=== PATIENT | female | born 1950 | race Caucasian/White ===

== ENCOUNTER 2017-10-01 17:37 | Inpatient (IN) | payer MEDICARE ==
[~2017-10-01] VITALS: Ht 162.6 cm; Wt 49.0 kg
[~2017-10-01 17:37] MED LIST: AUGMENTIN500TAB PO; BENADRYL25 MG PO; CETIRIZ/PSE1 TAB PO; FUROSEMIDE20 MG PO; KLOR-CON20 MEQ PO; LASIX 10 MG10 MG/TA1 PO; MOTRIN800 MG OR; SPIRONOLACT25 MG PO; SPIRONOLACTONE25 MG PO; ULTRAM50 M1 PO; ZITHROMAX250 MG PO
--- NOTE | 2017-10-01 17:47 | NUR ---
PT TO ROOM WITH A STEADY GAIT.
[2017-10-01 18:31] LABS: HEMATOCRIT 38.1 % (37.0-47.0); IMMATURE GRANULOCYTES 0.6 % (0.0-1.0); MEAN CORPUSCULAR HGB CONC 34.1 g/L CALC (32.0-36.0); NEUT# 18.27 thou/uL (2.00-7.15); RED BLOOD COUNT 4.34 mill/uL (4.20-5.60); RED CELL DISTRI WIDTH 13.6 % (11.5-15.5)
[2017-10-01 18:32] LABS: MEAN CELL VOLUME 87.8 fL CALC (80.0-100.0)
[2017-10-01 18:39] LABS: ALBUMIN 3.5 g/dL (3.2-5.0); BILIRUBIN, TOTAL 1.1 mg/dL (0.0-1.4); CREATININE 1.1 mg/dL (0.5-1.0); POTASSIUM 3.4 mmol/l (3.5-5.1); TOTAL PROTEIN 6.4 g/dL (6.3-8.2)
[2017-10-01 19:12] LABS: URINE BILIRUBIN - DIPSTICK NEGATIVE (NEGATIVE); URINE BLOOD DIPSTICK TRACE-INTACT (NEGATIVE); URINE COLOR YELLOW; URINE GLUCOSE - DIPSTICK NEGATIVE (NEGATIVE); URINE KETONE TRACE mg/dL (NEGATIVE); URINE NITRITE - DIPSTICK NEGATIVE (Negative); URINE PROTEIN - DIPSTICK 30 mg/dL (NEG-TRACE); URINE SPECIFIC GRAVITY 1.015; URINE UROBILINOGEN - DIPSTICK 0.2 E.U./dL (0.2)
[2017-10-01 19:13] LABS: URINE CLARITY CLEAR; URINE LEUK ESTERASE SMALL (NEGATIVE); URINE RBC 0-2 RBC/hpf (0-5)
[2017-10-01 19:14] LABS: URINE SQUAMOUS EPITHELIAL CELL FEW EPI/hpf (0-FEW)
[2017-10-01 19:54] LABS: INFLUENZA A NONE DETECTED (NONE DETECT); INFLUENZA B NONE DETECTED (NONE DETECT)
--- NOTE | 2017-10-01 20:09 | NUR ---
PT HAS BEEN UPDATED ON KNOWN RESULTS. SHE HAS BEEN DRINKING THE ORAL CONTRAST IN PREPARATION FOR CT ABD. IV ABX PROVIDED ORDERED.
--- NOTE | 2017-10-01 20:33 | NUR ---
PATIENT AMBULATORY TO BATHROOM WITHOUT ASSIST.
[2017-10-01] MEDS ORDERED: FLONASE AL50 MCG/ACT IN (21:32)
[2017-10-01] MEDS ORDERED: LOSARTAN/HCT1 TA1 PO (21:33)
--- NOTE | 2017-10-01 22:12 | NUR ---
REPORT PROVIDED TO BRENNAN WILKINS, TO FLOOR SOON.
--- NOTE | 2017-10-01 22:43 | NUR ---
PT ARRIVED TO UNIT AT 2236 VIA STRETCHER WITH ER STAFF. AMBULATED TO BED WITH UNSTEADY GAIT. ALERT AND ORIENTED. DENIES PAIN UPON ARRIVA. RESPIRATIONS EVEN AND UNLABORED ON ROOM AIR. TEMPERATURE 99.4. OREINTED TO ROOM AND CALL LIGHT SYSTEM. PLAN OF CARE DISCUSSED. PT ENCOURAGED TO VERBALIZE CONCERNS. STATES UNDERSTANDING. SAFETY MEASURES IN PLACE. CALL LIGHT WITHIN REACH.
[2017-10-01 22:55] VITALS: BP 133/84
--- NOTE | 2017-10-01 23:00 | NUR ---
PT STATES THAT SHE WENT TO A WALK IN CLINIC ABOUT 3 WEEKS AGO WITH EAR ACHE AND OTHER VAGUE SYMPTOMS. THEY GAVE HER A 5 DAY DOSE OF ABT WHICH SHE COMPLETED AND EAR DROPS. SYMPTOMS DID NOT RESOLVE.
[2017-10-02 00:10] VITALS: BP 149/81
--- NOTE | 2017-10-02 00:23 | NUR ---
PT RESTING IN BED WITH EYES CLOSED; AWAKENS SPONTANEOUSLY. TEMPERATURE DOWN TO 97.8 AFTER ARRIVAL TO UNIT. PT IS POOR HISTORIAN AND ANSWERED SEVERAL QUESTIONS WITH "MAYBE" AND "IM NOT SURE." CONTINUES TO DENY PAIN. RESPIRATIONS EVEN AND UNLABORED ON ROOM AIR. IV FLUIDS INFUSING WITHOUT DIFFICULTY; IV SITE APPEARS HEALTHY. WAS UP TO VOID PALE YELLOW URINE. PT HAS NO REQUESTS OR CONCERNS AT THIS TIME. SAFETY MEASURES IN PLACE. CALL LIGHT WITHIN REACH.
[2017-10-02 04:20] VITALS: BP 166/91
--- NOTE | 2017-10-02 04:44 | NUR ---
PT ASLEEP AT THIS TIME WITH NO SIGNS OF DISTRESS. RESPIRATIONS EVEN AND UNLABORED. IV FLUIDS COMPLETED AND IV SITE SALINE LOCKED. NO ACUTE CHANGES IN CONDITION THROUGHOUT THE NIGHT. SAFETY MEASURES IN PLACE. CALL LIGHT WITHIN REACH.
[2017-10-02 07:38] LABS: HEMATOCRIT 35.3 % (37.0-47.0); HEMOGLOBIN 11.8 g/dl (12.0-16.0); IMMATURE GRANULOCYTES 0.6 % (0.0-1.0); MEAN CELL VOLUME 89.1 fL CALC (80.0-100.0); MEAN CORPUSCULAR HGB 29.8 pG CALC (26.0-32.0); MEAN CORPUSCULAR HGB CONC 33.4 g/L CALC (32.0-36.0); NEUT# 13.86 thou/uL (2.00-7.15); RED BLOOD COUNT 3.96 mill/uL (4.20-5.60); RED CELL DISTRI WIDTH 13.5 % (11.5-15.5)
[2017-10-02 08:00] LABS: ALBUMIN 2.8 g/dL (3.2-5.0); ALKALINE PHOSPHATASE 119 u/l (38-126); ANION GAP 17 (6-22 (CALC)); BILIRUBIN, TOTAL 0.8 mg/dL (0.0-1.4); BUN 14 mg/dL (8-23); BUN/CREATININE RATIO 14 (12-20 (CALC)); CARBON DIOXIDE 26 mmol/l (22-30); CHLORIDE 99 mmol/l (95-108); GFR 55 ML/MIN (>=60 (CALC)); GFR FOR AFR.AMER. > 60 ML/MIN (>=60 (CALC)); POTASSIUM 3.7 mmol/l (3.5-5.1); SGOT/AST 18 u/l (9-36); SGPT/ALT 30 u/l (11-66); SODIUM 138 mmol/l (137-146); TOTAL PROTEIN 5.5 g/dL (6.3-8.2)
[2017-10-02 08:50] VITALS: BP 165/61
--- NOTE | 2017-10-02 08:50 | NUR ---
PT IS RELAXING IN BED WITH NO DISTRESS NOTED. IV SITE IS FREE FROM REDNESS OR EDEMA, HR IS REG, PULSES ARE STRONG X4, ABD IS SOFT WITH ACTIVE BS TELE MONITOR IN PLACE.
[2017-10-02 10:33] LABS: CHOLESTEROL HDL RATIO 3.8 (<4.4 (CALC))
--- NOTE | 2017-10-02 12:30 | NUR ---
PT HAS BEEN RELAXING IN THE BED, NO DISTRESS NOTED. IV SITE IS FREE FROM REDNESS OR EDEMA.
[2017-10-02 16:00] VITALS: BP 150/63; BP 150/74
--- NOTE | 2017-10-02 16:30 | NUR ---
PT HAS BEEN RELAXING IN BED WITH NO DISTRESS NOTED IV SITE IS FREE FROM REDNESS OR EDEMA.
[2017-10-02 19:35] VITALS: BP 147/87
--- NOTE | 2017-10-02 20:00 | NUR ---
BEDSIDE REPORT RECEIVED FROM HEIDI SHULTZ. PT SITTING UP IN BED READING; ALERT AND ORIENTED. DENIES PAIN. RESPIRATIONS EVEN AND UNLABORED ON ROOM AIR. AFEBRILE AT THIS TIME. PLAN OF CARE REVIEWED. PT ENCOURAGED TO VERBALIZE CONCERNS. STATES UNDERSTANDING. SAFETY MEASURES IN PLACE. CALL LIGHT WITHIN REACH.
--- NOTE | 2017-10-02 23:55 | NUR ---
PT SITTING UP IN BED READING. CONTINUES TO DENY PAIN. RESPIRATIONS EVEN AND UNLABORED. PT STATES THAT PRODUCTIVE COUGH HAS IMPROVED SINCE YESTERDAY; BLOWING NOSE; CLEAR THIN. IV FLUIDS INFUSING WITHOUT DIFFICULTY; IV SITE APPEARS HEALTHY. NO REQUESTS OR CONCERNS AT THIS TIME. SAFETY MEASURES IN PLACE. CALL LIGHT WITHIN REACH.
--- NOTE | 2017-10-03 04:03 | NUR ---
PT ASLEEP AT THIS TIME WITH NO SIGNS OF DISTRESS. RESPIRATIONS EVEN AND UNLABORED ON ROOM AIR. NO ACUTE CHANGES IN CONDITION THROUGHOUT THE NIGHT. INDEPENDENT IN ROOM. SAFETY MEASURES IN PLACE. CALL LIGHT WITHIN REACH.
[2017-10-03 04:15] VITALS: BP 150/80
[2017-10-03 05:29] LABS: HEMATOCRIT 37.4 % (37.0-47.0); HEMOGLOBIN 12.4 g/dl (12.0-16.0); IMMATURE GRANULOCYTES 0.8 % (0.0-1.0); MEAN CELL VOLUME 89.3 fL CALC (80.0-100.0); MEAN CORPUSCULAR HGB 29.6 pG CALC (26.0-32.0); MEAN CORPUSCULAR HGB CONC 33.2 g/L CALC (32.0-36.0); NEUT# 10.31 thou/uL (2.00-7.15); RED BLOOD COUNT 4.19 mill/uL (4.20-5.60); RED CELL DISTRI WIDTH 13.3 % (11.5-15.5)
[2017-10-03 05:52] LABS: ANION GAP 18 (6-22 (CALC)); BUN 18 mg/dL (8-23); BUN/CREATININE RATIO 19 (12-20 (CALC)); CARBON DIOXIDE 21 mmol/l (22-30); CHLORIDE 102 mmol/l (95-108); GFR 55 ML/MIN (>=60 (CALC)); GFR FOR AFR.AMER. > 60 ML/MIN (>=60 (CALC)); MAGNESIUM 1.2 mg/dL (1.6-2.3); SODIUM 137 mmol/l (137-146)
[2017-10-03 08:15] VITALS: BP 172/80
--- NOTE | 2017-10-03 08:15 | NUR ---
RECEIVED PT IN BED WITH NO DISTRESS NOTED IV SITE IS FREE FROM REDNESS OR EDEMA. HR IS REG,PULSES ARE STRONG X4, ABD IS SOFT WITH ACTIVE BS. TELE MONITOR IN PLACE.
[2017-10-03 11:11] VITALS: BP 160/84
--- NOTE | 2017-10-03 12:00 | NUR ---
PT IS RELAXING IN BED WITH NO DISTRESS NOTED. IV SITE IS FREE FROM REDNESS OR EDEMA.
[2017-10-03 15:35] VITALS: BP 172/86
--- NOTE | 2017-10-03 16:07 | NUR ---
PT IS RELAXING IN THE BED WITH NO DISTRESS NOTED. IV SITE IS FREE FROM REDNESS OR EDEMA.
--- NOTE | 2017-10-03 19:18 | NUR ---
UPON ENTERING ROOM, PT IS EXITING RESTROOM. DENIES ANY NEED FOR ASSISTANCE, STATES THAT SHE WAS OPENING [employer] P[employer] AND DID SOMETHING TO HER TEETH OR SOMETHING COVERING HER TEETH THAT SHE JUST HAD APPLIED PRIOR TO COMING TO HOSPITAL, NO VISIBLE DAMAGE AT THIS TIME. PT.DENIES ANY OTHER NEEDS AT THIS TIME. CALL LIGHT W/IN REACH AND PT.ENCOURAGED TO CALL IF ANY NEEDS ARISE.
[2017-10-03 20:00] VITALS: BP 169/82
--- NOTE | 2017-10-03 22:08 | NUR ---
PT.MEDICATED ORDERS PROVIDE, ASSESSMENT COMPLETED AT THIS TIME. PT.REPORTS BM TODAY AND NO DIFFICULTIES URINATING. LUNG SOUNDS ARE CLEAR AND ABD SOFT/NON-TENDER, PT.DENIES SOB OR COUGH. NO NOTED EDEMA, SKIN IS INTACT. PT.LOCX4. POC DISCUSSED. PT.DENIES ANY NEEDS AT THIS TIME, CALL LIGHT IS IN HAND AND PT.ENCOURAGED TO CALL.
[2017-10-03 22:25] VITALS: BP 160/94
[2017-10-04 00:55] VITALS: BP 158/88
--- NOTE | 2017-10-04 01:31 | NUR ---
PT.CALLED TO ASK FOR ADDITIONAL TISSUES TO HAVE AT BEDSIDE. LIGHTS AND TV ARE ON AND PT.WALKING AROUND ROOM. CALL LIGHT IS ON BED.
--- NOTE | 2017-10-04 02:16 | NUR ---
PT.MEDICATED FOR HEADACHE. LIGHTS AND TV ARE ON, PT.STATES NOT ABLE TO GO TO SLEEP. I ENCOURAGED PT.TO TURN LIGHTS AND TV DOWN LOW FOR A LITTLE WHILE AND SEE IF THAT HELPS. IV FLUIDS REPLENISHED AND IV SITE APPEARS HEALTHY. CALL LIGHT AT BEDSIDE.
[2017-10-04 03:38] VITALS: BP 142/73
[2017-10-04 05:02] LABS: HEMATOCRIT 35.1 % (37.0-47.0); HEMOGLOBIN 11.8 g/dl (12.0-16.0); IMMATURE GRANULOCYTES 1.4 % (0.0-1.0); MEAN CELL VOLUME 87.8 fL CALC (80.0-100.0); MEAN CORPUSCULAR HGB 29.5 pG CALC (26.0-32.0); MEAN CORPUSCULAR HGB CONC 33.6 g/L CALC (32.0-36.0); NEUT# 14.27 thou/uL (2.00-7.15); RED CELL DISTRI WIDTH 13.3 % (11.5-15.5)
[2017-10-04 05:16] LABS: ANION GAP 15 (6-22 (CALC)); BUN 18 mg/dL (8-23); BUN/CREATININE RATIO 21 (12-20 (CALC)); CARBON DIOXIDE 20 mmol/l (22-30); CHLORIDE 107 mmol/l (95-108); CREATININE 0.9 mg/dL (0.5-1.0); GFR > 60 ML/MIN (>=60 (CALC)); GFR FOR AFR.AMER. > 60 ML/MIN (>=60 (CALC)); POTASSIUM 3.3 mmol/l (3.5-5.1); SODIUM 139 mmol/l (137-146)
[2017-10-04 05:18] LABS: MAGNESIUM 1.9 mg/dL (1.6-2.3)
--- NOTE | 2017-10-04 07:00 | NUR ---
SHIFT CHANGE REPORT FROM HARMONY MORALES AWAKE ALERT AND ORIENTED AMBULATING IN ROOM AND PERFORMING FACIAL MAKE-UP, NO C/PO DISCOMFORT, TELE MONITOR IN PLACE, IVF INFUSING, CALL OWEN IN REACH.
[2017-10-04 08:00] VITALS: BP 177/86
[2017-10-04 09:54] VITALS: BP 174/87
[2017-10-04 11:14] VITALS: BP 136/70
--- NOTE | 2017-10-04 11:45 | NUR ---
SITTING UP IN BED AT THIS TIME FOR MEAL, ALL NEEDS ADDRESSED, CALL WOEN IN REACH.
[2017-10-04] MEDS ORDERED: LEVAQUIN750 MG PO (14:43)
[2017-10-04] MEDS ORDERED: PEPCID20 MG PO (14:43)
[2017-10-04] MEDS ORDERED: BIOTUSSIN PO (14:43)
[2017-10-04] MEDS ORDERED: PREDNISONE10 MG PO (14:43)
[2017-10-04 15:17] VITALS: BP 177/87
--- NOTE | 2017-10-04 16:30 | NUR ---
Discharge instructions given. Patient verbalizes understanding of same. Discharged in stable condition via Wheelchair to Home with family. All belongings sent with pt.
== END 2017-10-04 16:22 | disposition home or self-care (01) | DRG 190 ==
LOC: ED 17:37 → ED-I 21:55 → ED 22:09 → MS2 22:10
PROVIDERS: Nurse Practitioner Family; ADMIT Internal Medicine; ATTEND Internal Medicine
DX: J44.1 Chronic obstructive pulmonary disease with (acute) exacerbation (principal); J18.9 Pneumonia, unspecified organism; N17.9 Acute kidney failure, unspecified; K70.30 Alcoholic cirrhosis of liver without ascites; E87.1 Hypo-osmolality and hyponatremia; N39.0 Urinary tract infection, site not specified; J44.0 Chronic obstructive pulmonary disease with (acute) lower respiratory infection; E83.42 Hypomagnesemia; F17.210 Nicotine dependence, cigarettes, uncomplicated; I10 Essential (primary) hypertension; K44.9 Diaphragmatic hernia without obstruction or gangrene; E87.6 Hypokalemia; R47.89 Other speech disturbances
CPT/HCPCS: J1956; J3475; S0164

== ENCOUNTER 2018-02-05 07:00 | Day surgery (SDC) | payer MEDICARE ==
[~2018-02-05 07:00] MED LIST changes: +BIOTUSSIN PO; +FLONASE AL50 MCG/ACT IN; +LEVAQUIN750 MG PO; +LOSARTAN/HCT1 TA1 PO; +PEPCID20 MG PO; +PREDNISONE10 MG PO
== END 2018-02-05 09:30 | disposition left against medical advice (07) ==
LOC: LWOBS 07:00 → ENDO 07:00 → LWOBS 09:30 → ORM 11:45
PROVIDERS: ATTEND Surgery
DX: Z91.19 Patient's noncompliance with other medical treatment and regimen (principal)

== ENCOUNTER 2020-06-08 19:34 | Emergency (ER) | payer MEDICARE ==
[~2020-06-08] VITALS: Ht 160 cm; Wt 47.0 kg
[~2020-06-08 19:34] MED LIST changes: +ALENDRONATE SOD70 MG PO; +MUCINEX DM MAXI1 TAB PO
[2020-06-08] MEDS ORDERED: OMEPRAZOLE10 MG PO (19:55)
[2020-06-08 20:48] VITALS: BP 170/89
== END 2020-06-08 20:48 | disposition home or self-care (01) ==
LOC: ED 19:34
PROC: 0HQKXZZ Repair Right Lower Leg Skin, External Approach (ICD-10-PCS; principal; 2020-06-08)
DX: S81.811A Laceration without foreign body, right lower leg, initial encounter (principal); I10 Essential (primary) hypertension; F17.200 Nicotine dependence, unspecified, uncomplicated; W01.198A Fall on same level from slipping, tripping and stumbling with subsequent striking against other object, initial encounter; Y93.K1 Activity, walking an animal; Y92.007 Garden or yard of unspecified non-institutional (private) residence as the place of occurrence of the external cause

== ENCOUNTER 2020-06-16 15:08 | Observation (INO) | payer MEDICARE ==
[~2020-06-16] VITALS: Ht 160 cm; Wt 48.1 kg
[~2020-06-16 15:08] MED LIST changes: +OMEPRAZOLE10 MG PO
[2020-06-16 15:26] VITALS: BP 173/105
[2020-06-16] MEDS ORDERED: ZYRTEC10 MG PO (16:30)
[2020-06-16] MEDS ORDERED: DOXYCYCLINE100 MG PO (16:34)
[2020-06-16] MEDS ORDERED: SINGULAIR10 MG PO (16:36)
[2020-06-16] MEDS ORDERED: ALENDRONAT70 MG/75 M PO (16:38)
[2020-06-16 17:32] VITALS: BP 178/83
[2020-06-16 17:36] LABS: HEMATOCRIT 35.5 % (37.0-47.0); MEAN CELL VOLUME 90.1 fL CALC (80.0-100.0); MEAN CORPUSCULAR HGB 29.9 pG CALC (26.0-32.0); MEAN CORPUSCULAR HGB CONC 33.2 g/dL CAL (32.0-36.0); NEUT# 7.42 thou/uL (2.00-7.15); RED BLOOD COUNT 3.94 mill/uL (4.20-5.60); RED CELL DISTRI WIDTH 13.8 % (11.5-15.5)
[2020-06-16 17:40] LABS: HEMOGLOBIN 11.8 g/dl (12.0-16.0)
[2020-06-16 17:58] LABS: ALBUMIN 3.8 g/dL (3.2-5.0); ALKALINE PHOSPHATASE 104 u/l (38-126); BILIRUBIN, TOTAL 0.6 mg/dL (0.0-1.4); BUN 13 mg/dL (8-23); BUN/CREATININE RATIO 13 (12-20 (CALC)); CHLORIDE 94 mmol/l (95-108); GFR 55 ML/MIN (>=60 (CALC)); GFR FOR AFR.AMER. > 60 ML/MIN (>=60 (CALC)); POTASSIUM 3.6 mmol/l (3.5-5.1); SGOT/AST 22 u/l (9-36); TOTAL PROTEIN 6.9 g/dL (6.3-8.2)
[2020-06-16 17:59] LABS: ANION GAP 14 (6-22 (CALC)); CARBON DIOXIDE 23 mmol/l (22-30); SODIUM 127 mmol/l (137-146)
[2020-06-16 19:03] LABS: URINE BILIRUBIN - DIPSTICK NEGATIVE (NEGATIVE); URINE BLOOD DIPSTICK NEGATIVE (NEGATIVE); URINE CLARITY CLEAR; URINE COLOR YELLOW; URINE GLUCOSE - DIPSTICK NEGATIVE (NEGATIVE); URINE KETONE NEGATIVE (NEGATIVE); URINE LEUK ESTERASE NEGATIVE (Negative); URINE NITRITE - DIPSTICK NEGATIVE (Negative); URINE PROTEIN - DIPSTICK NEGATIVE (NEG-TRACE); URINE UROBILINOGEN - DIPSTICK 0.2 E.U./dL (0.2)
[2020-06-16 19:45] VITALS: BP 165/79
[2020-06-17 00:45] VITALS: BP 125/71
[2020-06-17 03:50] VITALS: BP 151/73
[2020-06-17 06:01] LABS: ALBUMIN 3.4 g/dL (3.2-5.0); BILIRUBIN, TOTAL 0.6 mg/dL (0.0-1.4); CREATININE 1.1 mg/dL (0.5-1.0); POTASSIUM 3.8 mmol/l (3.5-5.1); TOTAL PROTEIN 5.8 g/dL (6.3-8.2)
[2020-06-17 08:11] VITALS: BP 167/91
[2020-06-17] MEDS ORDERED: ALLERGY NA50 MCG/ACT (12:13)
[2020-06-17 14:47] VITALS: BP 199/78
[2020-06-17 18:47] VITALS: BP 176/81
[2020-06-17 20:00] VITALS: BP 122/62
[2020-06-18] VITALS (8 sets, daily range): BP systolic 147–194; BP diastolic 68–95
[2020-06-18 04:54] LABS: HEMATOCRIT 34.3 % (37.0-47.0); HEMOGLOBIN 11.2 g/dl (12.0-16.0); MEAN CORPUSCULAR HGB 29.7 pG CALC (26.0-32.0); MEAN CORPUSCULAR HGB CONC 32.7 g/dL CAL (32.0-36.0); RED BLOOD COUNT 3.77 mill/uL (4.20-5.60)
[2020-06-18 05:16] LABS: ANION GAP 13 (6-22 (CALC)); BUN 16 mg/dL (8-23); BUN/CREATININE RATIO 16 (12-20 (CALC)); CARBON DIOXIDE 20 mmol/l (22-30); CHLORIDE 98 mmol/l (95-108); GFR 55 ML/MIN (>=60 (CALC)); GFR FOR AFR.AMER. > 60 ML/MIN (>=60 (CALC)); POTASSIUM 3.9 mmol/l (3.5-5.1); SODIUM 128 mmol/l (137-146)
[2020-06-18 05:17] LABS: MAGNESIUM 1.1 mg/dL (1.6-2.3)
[2020-06-19] VITALS (7 sets, daily range): BP systolic 145–181; BP diastolic 57–86
[2020-06-19 05:41] LABS: HEMATOCRIT 34.5 % (37.0-47.0); HEMOGLOBIN 11.4 g/dl (12.0-16.0); MEAN CELL VOLUME 90.8 fL CALC (80.0-100.0); RED BLOOD COUNT 3.8 mill/uL (4.20-5.60); RED CELL DISTRI WIDTH 13.9 % (11.5-15.5)
[2020-06-19 05:46] LABS: ALBUMIN 3.2 g/dL (3.2-5.0); ALKALINE PHOSPHATASE 88 u/l (38-126); ANION GAP 13 (6-22 (CALC)); BILIRUBIN, TOTAL 0.5 mg/dL (0.0-1.4); BUN 13 mg/dL (8-23); BUN/CREATININE RATIO 14 (12-20 (CALC)); CARBON DIOXIDE 20 mmol/l (22-30); CHLORIDE 99 mmol/l (95-108); GFR 55 ML/MIN (>=60 (CALC)); GFR FOR AFR.AMER. > 60 ML/MIN (>=60 (CALC)); POTASSIUM 3.8 mmol/l (3.5-5.1); SGOT/AST 18 u/l (9-36); SODIUM 129 mmol/l (137-146); TOTAL PROTEIN 5.6 g/dL (6.3-8.2)
[2020-06-19 06:00] LABS: MAGNESIUM 2.2 mg/dL (1.6-2.3)
[2020-06-20] VITALS: BP 166/81
[2020-06-20 04:00] VITALS: BP 164/82
[2020-06-20] MEDS ORDERED: OMEPRAZOLE DR40 MG PO (07:40)
[2020-06-20 07:50] VITALS: BP 186/82
[2020-06-20 09:55] VITALS: BP 191/68
[2020-06-20 11:15] VITALS: BP 145/70
[2020-06-20] MEDS ORDERED: VANTIN200 M1 PO (15:56)
[2020-06-20] MEDS ORDERED: FLORASTOR250 M1 PO (16:10)
== END 2020-06-20 17:00 | disposition home or self-care (01) ==
LOC: MS2 15:08
PROVIDERS: Nurse Practitioner; Nurse Practitioner Family; ADMIT Internal Medicine; ATTEND Internal Medicine
DX: L03.115 Cellulitis of right lower limb (principal); T81.33XA Disruption of traumatic injury wound repair, initial encounter; S81.811A Laceration without foreign body, right lower leg, initial encounter; E87.1 Hypo-osmolality and hyponatremia; E83.42 Hypomagnesemia; I10 Essential (primary) hypertension; F10.10 Alcohol abuse, uncomplicated; K70.30 Alcoholic cirrhosis of liver without ascites; F17.200 Nicotine dependence, unspecified, uncomplicated; B96.89 Other specified bacterial agents as the cause of diseases classified elsewhere; Y83.8 Other surgical procedures as the cause of abnormal reaction of the patient, or of later complication, without mention of misadventure at the time of the procedure; W19.XXXA Unspecified fall, initial encounter; Z20.822 Contact with and (suspected) exposure to COVID-19
CPT/HCPCS: J0692; J1650; J3370; J3475

== ENCOUNTER 2021-03-27 14:13 | Inpatient (IN) | payer MEDICARE ==
[~2021-03-27] VITALS: Ht 160 cm; Wt 51.5 kg
[~2021-03-27 14:13] MED LIST changes: +ALENDRONAT70 MG/75 M PO; +ALLERGY NA50 MCG/ACT; +DOXYCYCLINE100 MG PO; +FLORASTOR250 M1 PO; +OMEPRAZOLE DR40 MG PO; +SINGULAIR10 MG PO; +VANTIN200 M1 PO; +ZYRTEC10 MG PO
[2021-03-27] MEDS ORDERED: TRAZODONE50 MG PO (17:57)
[2021-03-27] MEDS ORDERED: AMLODIPINE BESYL5 MG PO (17:57)
[2021-03-27 18:35] VITALS: BP 160/66
[2021-03-28 00:27] LABS: URINE BILIRUBIN - DIPSTICK NEGATIVE (NEGATIVE); URINE BLOOD DIPSTICK TRACE-INTACT (NEGATIVE); URINE COLOR YELLOW; URINE GLUCOSE - DIPSTICK NEGATIVE (NEGATIVE); URINE KETONE NEGATIVE (NEGATIVE); URINE LEUK ESTERASE SMALL (NEGATIVE); URINE PH 6.5 (4.5-8.0); URINE PROTEIN - DIPSTICK NEGATIVE (NEG-TRACE); URINE SPECIFIC GRAVITY 1.015; URINE UROBILINOGEN - DIPSTICK 0.2 E.U./dL (0.2)
[2021-03-28 00:28] LABS: URINE NITRITE - DIPSTICK NEGATIVE (Negative)
[2021-03-28 04:00] VITALS: BP 122/56
[2021-03-28 05:45] LABS: HEMOGLOBIN 10.9 g/dl (12.0-16.0); MEAN CELL VOLUME 92.4 fL CALC (80.0-100.0); MEAN CORPUSCULAR HGB 30.5 pG CALC (26.0-32.0); RED BLOOD COUNT 3.57 mill/uL (4.20-5.60); RED CELL DISTRI WIDTH 12.3 % (11.5-15.5)
[2021-03-28 05:53] LABS: CREATININE 1.2 mg/dL (0.5-1.0); POTASSIUM 3.9 mmol/l (3.5-5.1)
[2021-03-28 05:56] LABS: MAGNESIUM 1.1 mg/dL (1.6-2.3)
[2021-03-28 07:23] LABS: INTERNATIONAL NORMALIZED RATIO 1.1 RATIO (0.7-1.3); PROTHROMBIN TIME 11.4 SECONDS (9.0-12.5)
[2021-03-28 08:39] VITALS: BP 146/71
[2021-03-28 15:05] VITALS: BP 168/73
[2021-03-28 19:00] VITALS: BP 159/70
[2021-03-29 03:28] VITALS: BP 146/69
[2021-03-29 05:40] LABS: HEMATOCRIT 31.2 % (37.0-47.0); HEMOGLOBIN 10.4 g/dl (12.0-16.0); MEAN CELL VOLUME 91.8 fL CALC (80.0-100.0); MEAN CORPUSCULAR HGB 30.6 pG CALC (26.0-32.0); MEAN CORPUSCULAR HGB CONC 33.3 g/dL CAL (32.0-36.0); RED BLOOD COUNT 3.4 mill/uL (4.20-5.60); RED CELL DISTRI WIDTH 12.4 % (11.5-15.5)
[2021-03-29 06:09] LABS: CREATININE 1.1 mg/dL (0.5-1.0); POTASSIUM 3.5 mmol/l (3.5-5.1)
[2021-03-29 06:31] LABS: MAGNESIUM 1.9 mg/dL (1.6-2.3)
[2021-03-29 08:08] VITALS: BP 172/77
[2021-03-29 10:00] VITALS: BP 150/72
[2021-03-29 15:00] VITALS: BP 155/73
[2021-03-29 19:24] VITALS: BP 153/72
[2021-03-30 04:30] VITALS: BP 139/62
[2021-03-30 05:37] LABS: HEMOGLOBIN 9.6 g/dl (12.0-16.0); MEAN CELL VOLUME 90.3 fL CALC (80.0-100.0); MEAN CORPUSCULAR HGB CONC 34.3 g/dL CAL (32.0-36.0); RED BLOOD COUNT 3.1 mill/uL (4.20-5.60); RED CELL DISTRI WIDTH 12.2 % (11.5-15.5)
[2021-03-30 05:57] LABS: ANION GAP 14 (6-22 (CALC)); BUN 7 mg/dL (8-23); BUN/CREATININE RATIO 7 (12-20 (CALC)); CARBON DIOXIDE 20 mmol/l (22-30); CHLORIDE 100 mmol/l (95-108); CREATININE 0.9 mg/dL (0.5-1.0); GFR > 60 ML/MIN (>=60 (CALC)); GFR FOR AFR.AMER. > 60 ML/MIN (>=60 (CALC)); POTASSIUM 3.4 mmol/l (3.5-5.1); SODIUM 131 mmol/l (137-146)
[2021-03-30 06:01] LABS: MAGNESIUM 1.2 mg/dL (1.6-2.3)
[2021-03-30 08:00] VITALS: BP 120/56
[2021-03-30 11:22] VITALS: BP 130/61
[2021-03-30 14:45] VITALS: BP 124/64
[2021-03-30 19:00] VITALS: BP 133/70
[2021-03-31 04:00] VITALS: BP 93/60
[2021-03-31 05:06] LABS: HEMATOCRIT 27.6 % (37.0-47.0); HEMOGLOBIN 9.3 g/dl (12.0-16.0); MEAN CELL VOLUME 91.1 fL CALC (80.0-100.0); MEAN CORPUSCULAR HGB 30.7 pG CALC (26.0-32.0); MEAN CORPUSCULAR HGB CONC 33.7 g/dL CAL (32.0-36.0); RED BLOOD COUNT 3.03 mill/uL (4.20-5.60); RED CELL DISTRI WIDTH 12.4 % (11.5-15.5)
[2021-03-31 05:14] LABS: ANION GAP 7 (6-22 (CALC)); BUN 6 mg/dL (8-23); BUN/CREATININE RATIO 7 (12-20 (CALC)); CARBON DIOXIDE 22 mmol/l (22-30); CHLORIDE 102 mmol/l (95-108); CREATININE 0.9 mg/dL (0.5-1.0); GFR > 60 ML/MIN (>=60 (CALC)); GFR FOR AFR.AMER. > 60 ML/MIN (>=60 (CALC)); POTASSIUM 3.3 mmol/l (3.5-5.1); SODIUM 128 mmol/l (137-146)
[2021-03-31 07:51] VITALS: BP 131/71
[2021-03-31] MEDS ORDERED: METRONIDAZOLE500 MG PO (10:49)
[2021-03-31] MEDS ORDERED: LORTAB 7.57.5 MG PO (10:49)
[2021-03-31] MEDS ORDERED: CIPROFLOXACN500 MG PO (10:49)
[2021-03-31 15:54] VITALS: BP 117/65
[2021-03-31 19:00] VITALS: BP 130/69
[2021-04-01 04:00] VITALS: BP 107/67
[2021-04-01 05:04] LABS: HEMATOCRIT 33.5 % (37.0-47.0); MEAN CELL VOLUME 88.9 fL CALC (80.0-100.0); MEAN CORPUSCULAR HGB 30.5 pG CALC (26.0-32.0); MEAN CORPUSCULAR HGB CONC 34.3 g/dL CAL (32.0-36.0); RED BLOOD COUNT 3.77 mill/uL (4.20-5.60); RED CELL DISTRI WIDTH 12.2 % (11.5-15.5)
[2021-04-01 05:05] LABS: HEMOGLOBIN 11.5 g/dl (12.0-16.0)
[2021-04-01 05:29] LABS: ANION GAP 12 (6-22 (CALC)); BUN 7 mg/dL (8-23); BUN/CREATININE RATIO 8 (12-20 (CALC)); CARBON DIOXIDE 21 mmol/l (22-30); CHLORIDE 103 mmol/l (95-108); CREATININE 0.8 mg/dL (0.5-1.0); GFR > 60 ML/MIN (>=60 (CALC)); GFR FOR AFR.AMER. > 60 ML/MIN (>=60 (CALC)); MAGNESIUM 1.4 mg/dL (1.6-2.3); SODIUM 132 mmol/l (137-146)
[2021-04-01 07:45] VITALS: BP 135/75
[2021-04-01 10:54] VITALS: BP 120/74
== END 2021-04-01 11:18 | disposition home health service (06) | DRG 372 ==
LOC: ED 14:13 → ED-I 15:50 → ED 17:24 → MS2 17:25
PROVIDERS: Family Medicine; Nurse Practitioner; Nurse Practitioner Adult Health; ADMIT Internal Medicine; ATTEND Internal Medicine
PROC: 0W9G30Z Drainage of Peritoneal Cavity with Drainage Device, Percutaneous Approach (ICD-10-PCS; principal; 2021-03-28)
DX: K35.33 Acute appendicitis with perforation, localized peritonitis, and gangrene, with abscess (principal); E87.1 Hypo-osmolality and hyponatremia; N17.9 Acute kidney failure, unspecified; Z68.1 Body mass index [BMI] 19.9 or less, adult; E83.42 Hypomagnesemia; E86.0 Dehydration; E87.6 Hypokalemia; I10 Essential (primary) hypertension; K70.30 Alcoholic cirrhosis of liver without ascites; K21.9 Gastro-esophageal reflux disease without esophagitis; F17.210 Nicotine dependence, cigarettes, uncomplicated; B96.20 Unspecified Escherichia coli [E. coli] as the cause of diseases classified elsewhere; Z20.822 Contact with and (suspected) exposure to COVID-19; R10.9 Unspecified abdominal pain; R50.9 Fever, unspecified
CPT/HCPCS: J1650; J3475; Q9967

== ENCOUNTER 2021-04-06 13:51 | Observation (INO) | payer MEDICARE ==
[~2021-04-06] VITALS: Ht 160 cm; Wt 50.0 kg
[~2021-04-06 13:51] MED LIST changes: +AMLODIPINE BESYL5 MG PO; +CIPROFLOXACN500 MG PO; +LORTAB 7.57.5 MG PO; +METRONIDAZOLE500 MG PO; +TRAZODONE50 MG PO
[2021-04-06 14:20] VITALS: BP 125/56
[2021-04-06 14:50] LABS: IMMATURE GRANULOCYTES 0.7 % (0.0-5.0); MEAN CELL VOLUME 92.6 fL CALC (80.0-100.0); MEAN CORPUSCULAR HGB 30.6 pG CALC (26.0-32.0); MEAN CORPUSCULAR HGB CONC 33.1 g/dL CAL (32.0-36.0); NEUT# 7.63 thou/uL (2.00-7.15); RED BLOOD COUNT 2.84 mill/uL (4.20-5.60); RED CELL DISTRI WIDTH 13.3 % (11.5-15.5)
[2021-04-06 15:03] LABS: BILIRUBIN, TOTAL 0.4 mg/dL (0.0-1.4); CREATININE 1.6 mg/dL (0.5-1.0)
[2021-04-06 15:18] LABS: ALBUMIN 2.9 g/dL (3.2-5.0); POTASSIUM 3.1 mmol/l (3.5-5.1); TOTAL PROTEIN 5.9 g/dL (6.3-8.2)
[2021-04-06 15:48] LABS: HEMATOCRIT 26.3 % (37.0-47.0); HEMOGLOBIN 8.7 g/dl (12.0-16.0)
[2021-04-06 17:41] LABS: URINE BILIRUBIN - DIPSTICK NEGATIVE (NEGATIVE); URINE BLOOD DIPSTICK NEGATIVE (NEGATIVE); URINE CLARITY CLEAR; URINE COLOR YELLOW; URINE GLUCOSE - DIPSTICK NEGATIVE (NEGATIVE); URINE KETONE NEGATIVE (NEGATIVE); URINE LEUK ESTERASE TRACE (Negative); URINE NITRITE - DIPSTICK NEGATIVE (Negative); URINE PROTEIN - DIPSTICK TRACE mg/dL (NEG-TRACE); URINE SPECIFIC GRAVITY 1.025; URINE UROBILINOGEN - DIPSTICK 0.2 E.U./dL (0.2)
[2021-04-06 19:00] VITALS: BP 122/59
[2021-04-07 04:00] VITALS: BP 136/61
[2021-04-07 05:35] LABS: HEMATOCRIT 28.7 % (37.0-47.0); HEMOGLOBIN 9.5 g/dl (12.0-16.0); MEAN CORPUSCULAR HGB 30.4 pG CALC (26.0-32.0); MEAN CORPUSCULAR HGB CONC 33.1 g/dL CAL (32.0-36.0); RED BLOOD COUNT 3.12 mill/uL (4.20-5.60); RED CELL DISTRI WIDTH 13.4 % (11.5-15.5)
[2021-04-07 05:53] LABS: CREATININE 1.3 mg/dL (0.5-1.0)
[2021-04-07 06:06] LABS: POTASSIUM 4.1 mmol/l (3.5-5.1)
[2021-04-07 08:36] VITALS: BP 132/63
[2021-04-07 15:39] VITALS: BP 152/67
[2021-04-07 19:00] VITALS: BP 146/67
[2021-04-08 03:30] VITALS: BP 126/62
[2021-04-08 05:32] LABS: HEMATOCRIT 29.9 % (37.0-47.0); HEMOGLOBIN 10.2 g/dl (12.0-16.0); MEAN CELL VOLUME 90.1 fL CALC (80.0-100.0); MEAN CORPUSCULAR HGB 30.7 pG CALC (26.0-32.0); MEAN CORPUSCULAR HGB CONC 34.1 g/dL CAL (32.0-36.0); RED BLOOD COUNT 3.32 mill/uL (4.20-5.60); RED CELL DISTRI WIDTH 13.4 % (11.5-15.5)
[2021-04-08 05:57] LABS: ANION GAP 12 (6-22 (CALC)); BUN 8 mg/dL (8-23); BUN/CREATININE RATIO 8 (12-20 (CALC)); CARBON DIOXIDE 20 mmol/l (22-30); CHLORIDE 105 mmol/l (95-108); GFR 54 ML/MIN (>=60 (CALC)); GFR FOR AFR.AMER. > 60 ML/MIN (>=60 (CALC)); SODIUM 133 mmol/l (137-146)
[2021-04-08 06:04] LABS: MAGNESIUM 1.9 mg/dL (1.6-2.3)
[2021-04-08 08:12] VITALS: BP 140/71
[2021-04-08 15:15] VITALS: BP 124/63
[2021-04-08 18:53] VITALS: BP 118/66
[2021-04-09 03:40] VITALS: BP 129/77
[2021-04-09 07:56] VITALS: BP 109/72
[2021-04-09 16:08] VITALS: BP 143/71
[2021-04-09 19:00] VITALS: BP 123/68
[2021-04-10 04:00] VITALS: BP 117/58
[2021-04-10 05:30] LABS: HEMATOCRIT 29.3 % (37.0-47.0); HEMOGLOBIN 9.9 g/dl (12.0-16.0); MEAN CELL VOLUME 91.3 fL CALC (80.0-100.0); MEAN CORPUSCULAR HGB 30.8 pG CALC (26.0-32.0); MEAN CORPUSCULAR HGB CONC 33.8 g/dL CAL (32.0-36.0); RED BLOOD COUNT 3.21 mill/uL (4.20-5.60); RED CELL DISTRI WIDTH 13.8 % (11.5-15.5)
[2021-04-10 05:51] LABS: ANION GAP 12 (6-22 (CALC)); BUN 7 mg/dL (8-23); BUN/CREATININE RATIO 8 (12-20 (CALC)); CARBON DIOXIDE 19 mmol/l (22-30); CHLORIDE 107 mmol/l (95-108); CREATININE 0.9 mg/dL (0.5-1.0); GFR > 60 ML/MIN (>=60 (CALC)); GFR FOR AFR.AMER. > 60 ML/MIN (>=60 (CALC)); POTASSIUM 3.7 mmol/l (3.5-5.1); SODIUM 135 mmol/l (137-146)
[2021-04-10 06:00] LABS: MAGNESIUM 1.1 mg/dL (1.6-2.3)
[2021-04-10 07:08] VITALS: BP 118/58
== END 2021-04-10 13:14 | disposition home health service (06) ==
LOC: MS2 13:51
PROVIDERS: Nurse Practitioner; ADMIT Internal Medicine; ATTEND Hospitalist
DX: R62.7 Adult failure to thrive (principal); E87.1 Hypo-osmolality and hyponatremia; E87.6 Hypokalemia; E83.42 Hypomagnesemia; K35.33 Acute appendicitis with perforation, localized peritonitis, and gangrene, with abscess; N17.9 Acute kidney failure, unspecified; I12.9 Hypertensive chronic kidney disease with stage 1 through stage 4 chronic kidney disease, or unspecified chronic kidney disease; N18.9 Chronic kidney disease, unspecified; K70.30 Alcoholic cirrhosis of liver without ascites; K21.9 Gastro-esophageal reflux disease without esophagitis; K44.9 Diaphragmatic hernia without obstruction or gangrene; F17.200 Nicotine dependence, unspecified, uncomplicated; Z68.1 Body mass index [BMI] 19.9 or less, adult; Z20.822 Contact with and (suspected) exposure to COVID-19
CPT/HCPCS: G0378; G0379; J3475

== ENCOUNTER 2021-05-01 07:52 | Day surgery (SDC) | payer MEDICARE ==
[~2021-05-01] VITALS: Ht 160 cm; Wt 45.4 kg
[~2021-05-01 07:52] MED LIST changes: +BL IBUPROFEN200 MG PO; +MULTI VIT PO
[2021-05-01 10:09] VITALS: BP 153/71
== END 2021-05-01 10:35 | disposition home or self-care (01) ==
LOC: ENDO 07:52
PROVIDERS: ATTEND Surgery
PROC: 0DBM8ZX Excision of Descending Colon, Via Natural or Artificial Opening Endoscopic, Diagnostic (ICD-10-PCS; principal; 2021-05-01)
PROC: 0DBL8ZX Excision of Transverse Colon, Via Natural or Artificial Opening Endoscopic, Diagnostic (ICD-10-PCS; 2021-05-01)
PROC: 0DBN8ZX Excision of Sigmoid Colon, Via Natural or Artificial Opening Endoscopic, Diagnostic (ICD-10-PCS; 2021-05-01)
DX: Z12.11 Encounter for screening for malignant neoplasm of colon (principal); D12.4 Benign neoplasm of descending colon; D12.5 Benign neoplasm of sigmoid colon; D12.3 Benign neoplasm of transverse colon; K57.30 Diverticulosis of large intestine without perforation or abscess without bleeding; I10 Essential (primary) hypertension; K21.9 Gastro-esophageal reflux disease without esophagitis; F17.200 Nicotine dependence, unspecified, uncomplicated

== ENCOUNTER 2021-05-23 08:05 | Day surgery (SDC) | payer MEDICARE ==
[~2021-05-23 08:05] MED LIST changes: +B121000 MC1 PO; +GABAPENTIN100 MG PO; +MAGNESIUM 250 M1 TAB PO
[2021-05-23] MEDS ORDERED: PERCOCET 5/321 COMBO PO (10:47)
[2021-05-23] MEDS ORDERED: BACTRIM DS1 TAB PO (10:47)
[2021-05-23 11:47] VITALS: BP 133/66
== END 2021-05-23 11:35 | disposition home or self-care (01) ==
LOC: ORM 08:05
PROVIDERS: ATTEND Surgery
PROC: 0DTJ4ZZ Resection of Appendix, Percutaneous Endoscopic Approach (ICD-10-PCS; principal; 2021-05-23)
DX: K35.33 Acute appendicitis with perforation, localized peritonitis, and gangrene, with abscess (principal); D12.1 Benign neoplasm of appendix; I10 Essential (primary) hypertension; K21.9 Gastro-esophageal reflux disease without esophagitis; K70.30 Alcoholic cirrhosis of liver without ascites; Z86.010 Personal history of colon polyps
CPT/HCPCS: J0131

== ENCOUNTER 2024-03-29 01:09 | Emergency (ER) | payer MEDICARE ==
[2024-03-29] VITALS (10 sets, daily range): BP systolic 122–164; BP diastolic 66–84
[~2024-03-29] VITALS: Ht 160 cm; Wt 48.5 kg
[~2024-03-29 01:09] MED LIST changes: +BACTRIM DS1 TAB PO; +DULCOLAX5 MG PO; +IBUPROFEN600 MG PO; +MEDDOSEPAK PO; +METHOCARBAMOL500 MG PO; +OXYCODONE5 M1 PO; +PERCOCET 5/321 COMBO PO; +VITAMIN D325 MCG PO
[2024-03-29] MEDS ORDERED: MORPHINE SULFATE 4 MG/ML VIAL IV ONE (01:25)
[2024-03-29 01:55] LABS: BASO% 0.3 % (0-3); EOS% 11.8 % (0-8); HEMOGLOBIN 12.5 g/dl (12.0-16.0); IMMATURE GRANULOCYTES 0.5 % (0.0-5.0); LYMPH% 37.8 % (15-41); MEAN CELL VOLUME 102.8 fL CALC (80.0-100.0); MEAN CORPUSCULAR HGB 32.1 pG CALC (26.0-32.0); MEAN CORPUSCULAR HGB CONC 31.3 g/dL CAL (32.0-36.0); MONO% 5.7 % (2-13); NEUT# 3.99 thou/uL (2.00-7.15); NEUT% 43.9 % (42-76); RED BLOOD COUNT 3.89 mill/uL (4.20-5.60)
[2024-03-29 02:04] LABS: ALBUMIN 3.6 g/dL (3.2-5.0); BILIRUBIN, TOTAL 0.4 mg/dL (0.02-1.3); CREATININE 0.9 mg/dL (0.5-1.0); TOTAL PROTEIN 6.5 g/dL (6.3-8.2)
== END 2024-03-29 03:20 | disposition short-term general hospital (02) ==
LOC: ED 01:09
PROVIDERS: Emergency Medicine
PROC: 0HQ1XZZ Repair Face Skin, External Approach (ICD-10-PCS; principal; 2024-03-29)
DX: S72.002A Fracture of unspecified part of neck of left femur, initial encounter for closed fracture (principal); S51.812A Laceration without foreign body of left forearm, initial encounter; S01.81XA Laceration without foreign body of other part of head, initial encounter; I12.9 Hypertensive chronic kidney disease with stage 1 through stage 4 chronic kidney disease, or unspecified chronic kidney disease; N18.9 Chronic kidney disease, unspecified; K21.9 Gastro-esophageal reflux disease without esophagitis; K74.60 Unspecified cirrhosis of liver; F17.210 Nicotine dependence, cigarettes, uncomplicated; W18.30XA Fall on same level, unspecified, initial encounter; Y92.009 Unspecified place in unspecified non-institutional (private) residence as the place of occurrence of the external cause